=== PATIENT | female | born 1960 | race Caucasian/White ===

== ENCOUNTER 2017-12-14 10:50 | Outpatient (RCR) | payer BC, MEDICARE ==
[2017-10-05] MEDS: LIDOCAINE/SOD BICARB 8.4% SYR ID PRN (12:10)
[2017-10-05 12:11] VITALS: BP 117/61
[2017-10-05] MEDS: NS(*) 0.9% 100 ML BAG 100 ML IVPB PRN (12:15)
[2017-10-05 15:01] VITALS: BP 123/75
[2017-11-11 10:15] VITALS: BP 94/77
[2017-11-11] MEDS: LIDOCAINE/SOD BICARB 8.4% SYR ID PRN (10:42)
[2017-11-11] MEDS: NS(*) 0.9% 100 ML BAG 100 ML IVPB PRN (10:42)
[~2017-12-14 10:50] MED LIST: DEXTROSE 5%(*) 100 ML BAG 100 ML IVPB PRN; methylPREDNIS SUC* 1000 MG/8ML 1,000 MG in NS(*) 0.9% 250 ML BAG 250 ML IV ONE
[2017-12-14 11:02] VITALS: BP 132/76
[2017-12-14] MEDS: LIDOCAINE/SOD BICARB 8.4% SYR ID PRN (11:02)
[2017-12-14] MEDS: NS(*) 0.9% 100 ML BAG 100 ML IVPB PRN (11:02)
[2017-12-14] MEDS ORDERED: methylPREDNIS SUC* 1000 MG/8ML 1,000 MG in NS(*) 0.9% 250 ML BAG 250 ML IV ONE (11:30)
== END 2018-01-02 ==
LOC: SPU 10:50
PROVIDERS: ATTEND Specialist
DX: G35 Multiple sclerosis (principal)
CPT/HCPCS: 96361; 96365; 96366; J2930; J7050

== ENCOUNTER → 2017-12-31 | Outpatient (CLI) | payer MEDICARE, BC | LOC: LAB 14:07 | PROVIDERS: ATTEND Specialist | DX: G35 Multiple sclerosis (principal); Z79.899 Other long term (current) drug therapy | CPT/HCPCS: 36415; 82310; 82374; 82435; 82565; 82947; 84132; 84295; 84520 ==

== ENCOUNTER → 2018-01-05 | Outpatient (CLI) | payer MEDICARE | LOC: LAB 15:26 | PROVIDERS: ATTEND Internal Medicine Nephrology | DX: N18.2 Chronic kidney disease, stage 2 (mild) (principal) | CPT/HCPCS: 81001; 82570; 84156; 87088 ==

== ENCOUNTER → 2018-01-07 | Outpatient (CLI) | payer MEDICARE | LOC: LAB 15:11 | PROVIDERS: ATTEND Internal Medicine Nephrology | DX: N18.2 Chronic kidney disease, stage 2 (mild) (principal) | CPT/HCPCS: 36415; 82310; 82374; 82435; 82565; 82947; 84132; 84295; 84520 ==

== ENCOUNTER → 2018-03-30 | Outpatient (CLI) | payer MEDICARE, BC | LOC: LAB 12:10 | PROVIDERS: ATTEND Specialist | DX: R79.89 Other specified abnormal findings of blood chemistry (principal) | CPT/HCPCS: 36415; 82310; 82374; 82435; 82565; 82947; 84132; 84295; 84520 ==

== ENCOUNTER 2018-11-08 11:30 | Outpatient (RCR) | payer MEDICARE, BC ==
[~2018-11-08 11:30] MED LIST changes: +LIDOCAINE/SOD BICARB 8.4% SYR ID PRN; +NS(*) 0.9% 100 ML BAG 100 ML IVPB PRN; -methylPREDNIS SUC* 1000 MG/8ML 1,000 MG in NS(*) 0.9% 250 ML BAG 250 ML IV ONE
[2018-11-08 11:41] VITALS: BP 133/64
[2018-11-08] MEDS ORDERED: ACETAMINOPHEN 500 MG TAB PO ONE (12:00)
[2018-11-08] MEDS ORDERED: ZOLEDRONIC ACID 5 MG/100ML BTL 100 ML IVPB ONE (12:00)
[2018-11-08 12:29] VITALS: BP 115/53
== END 2018-11-21 15:37 | disposition home or self-care (01) ==
LOC: SPU 11:30
PROVIDERS: ATTEND Specialist
DX: G35 Multiple sclerosis (principal); M81.0 Age-related osteoporosis without current pathological fracture
CPT/HCPCS: 82565; 96365; J3489; J7050

== ENCOUNTER → 2019-02-21 | Outpatient (CLI) | payer MEDICARE, BC ==
--- NOTE | 2019-02-21 11:28 | RADIOLOGY IMAGING REPORT ---
FACILITY: [facility] [place] PATIENT NAME: Mariza Gtz : 1960 MR: [id number] V: [id number] EXAM DATE: ORDERING PHYSICIAN: LUCA KAPLAN TECHNOLOGIST: [place] [facility] [place] Patient: Mariza Gtz : 1960 Visit/Account:[id number] Date of Sevice: 02/21/2019 DEXA Scan Clinical history: Osteopenia. Comparison: DEXA scan from 11/23/2016. LUMBAR SPINE: The bone mineral density (BMD) measured from L1-L4 correlates with a Z-score of -1.3 and a T-score of -2.6 which is osteoporosis as defined by the World Health Organization. The corresponding risk of f racture in the lumbar spine is 6-8 times increased compared with a young adult reference population. This value has decrease by 5.4 % since the prior study. More than 5% change is considered significa nt. HIP: Bone mineral density (BMD) measured in the LEFT total hip region correlates with a Z-score -2.2 and a T-score of -3.3 which is osteoporosis as defined by the World Health Organization. The correspondin g risk of fracture in the hip is 8-12 times increased compared to a young adult reference population. This value has decrease by 5.7 % since the prior study. More than 5% change is considered significa nt. T score left femoral neck -3.2 Bone mineral density (BMD) measured in the Femoral Neck region measures 0.589 g/cm?. IMPRESSION: 1. Lumbar spine: Osteoporosis. There has been 5.4% decrease in the bone mineral density since the p revious exam. 2. Left Total Hip: Osteoporosis. There has been 5.7% decrease in the bone mineral density since the previous exam. 3. Femoral Neck: Bone Mineral Density is 0.589 g/cm? The next DEXA scan of this patient should include the following sites: L1-L4 and the left hip. FRAX? WHO Fracture Risk Assessment Tool link: <http://www.shef.ac.uk/FRAX/tool.jsp?locationValue=9> PLEASE NOTE: 1) The World Health Organization defines low BMD as follows: T-score Normal > -1 Osteopenia < -1 and > -2.5 Osteoporosis < -2.5 without fractures Established osteoporosis < -2.5 with fractures 2) In general, you may wish to consider: Diagnosis Treatment Follow-up DEXA Normal BMD Prevention 2-3 years Osteopenia Prevention/therapy 1-2 years Osteoporosis Therapy Yearly 3) Fracture risk estimated from the T-score is more accurate for vertebral fractures (often spontane ous) than for hip fractures. Report Dictated By: Norma Mays MD at 02/21/2019 11:21 AM Report E-Signed By: Norma Mays MD at 02/21/2019 11:22 AM WSN:[email or web address]
== END ==
LOC: RAD 01:09
PROVIDERS: ATTEND Physician Assistant
DX: Z13.820 Encounter for screening for osteoporosis (principal); M81.0 Age-related osteoporosis without current pathological fracture
CPT/HCPCS: 77080

== ENCOUNTER 2019-03-03 11:00 | Outpatient (RCR) | payer MEDICARE, BC ==
[2019-02-17 10:12] VITALS: BP 117/78
[2019-02-17] MEDS: methylPREDNIS SUCC 125 MG/2ML IVP PRN (11:04)
[2019-02-17] MEDS: ACETAMINOPHEN 500 MG TAB PO PRN (11:05)
[2019-02-17] MEDS: diphenhydrAMINE 50 MG/ML VIAL IVP PRN (11:06)
[2019-02-17] MEDS: LIDOCAINE/SOD BICARB 8.4% SYR ID PRN (11:06)
[2019-02-17] MEDS: NS(*) 0.9% 100 ML BAG 100 ML IVPB PRN (11:08)
[~2019-03-03 11:00] MED LIST changes: -LIDOCAINE/SOD BICARB 8.4% SYR ID PRN; -NS(*) 0.9% 100 ML BAG 100 ML IVPB PRN; +OCRELIZUMAB 300 MG/10 ML SDV 300 MG in NS(*) 0.9% 250 ML BAG 250 ML IVPB ONE
[2019-03-03 11:25] VITALS: BP 117/55
[2019-03-03] MEDS: NS(*) 0.9% 100 ML BAG 100 ML IVPB PRN (11:53)
[2019-03-03] MEDS: LIDOCAINE/SOD BICARB 8.4% SYR ID PRN (11:53)
[2019-03-03] MEDS: methylPREDNIS SUCC 125 MG/2ML IVP PRN (12:02)
[2019-03-03] MEDS: ACETAMINOPHEN 500 MG TAB PO PRN (12:02)
[2019-03-03] MEDS: diphenhydrAMINE 50 MG/ML VIAL IVP PRN (12:18)
[2019-03-03] MEDS ORDERED: OCRELIZUMAB 300 MG/10 ML SDV 300 MG in NS(*) 0.9% 250 ML BAG 250 ML IVPB ONE (12:30)
[2019-03-03 15:48] VITALS: BP 118/59
== END 2019-05-17 11:10 | disposition home or self-care (01) ==
LOC: SPU 11:00
PROVIDERS: ATTEND Specialist
DX: G35 Multiple sclerosis (principal); M81.0 Age-related osteoporosis without current pathological fracture
CPT/HCPCS: 96365; 96366; 96375; A9270; J1200; J2350; J2930; J7050